=== PATIENT | female | born 1995 | race Caucasian/White ===

== ENCOUNTER 2016-12-24 08:31 | Emergency (ER) | payer OTHER ==
[~2016-12-24] VITALS: Ht 165.1 cm; Wt 72.6 kg
--- NOTE | ~2016-12-24 | US98 ---
[facility] A Service of [facility] & [facility] RADIOLOGY TEXT RESULTS PATIENT: BOOGIE SALAMANCA LOCATION: [facility] : [birth year] UNIT #: [id number] AGE: [address]: Lillie Duff APRN SEX: F ORDER DR: [id number] [facility] [address] [place], [place] [address] [id number] E MR#: [id number] Acc #: [id number] NAME: BOOGIE SALAMANCA : 1995 SEX: F STUDY DATE/TIME: 12/24/2016 9:32 UNIT: [id number] ROOM: STUDY DESCRIPTION: US Pelvic Non-OB Complete Attending Physician: Lillie Duff A.P.R.N. Ordering Physician: [facility] Primary Care Physician: Saud Jordan M.D. MEDICAL IMAGING REPORT This report is preliminary unless electronic signature is present EXAM Pelvic ultrasound, transabdominal and transvaginal technique, 12/24/2016 INDICATIONS Pelvic pain since last Saturday. Mirena device for 2 years. No irregular periods since the device was placed. Intermittent spotting for 2 years. TECHNIQUE Sonographic imaging of the pelvis was performed transabdominally and transvaginally for better evaluation of the adnexa and ovarian structures. COMPARISON None. Correlation is made with CT 02/11/2013. FINDINGS TRANSABDOMINAL IMAGING: The uterus measures 7.4 x 4.4 x 5.3 cm. It is better characterized transvaginally. The right ovary is only seen transvaginally. The left is seen transabdominally but better characterized transvaginally as well. TRANSVAGINAL IMAGING: An intrauterine device is present within the uterus and appears to be in satisfactory position. A small amount of nonspecific fluid associated with endometrial canal which is distended up to 7 mm. Uterus otherwise unremarkable. There is a small amount of free fluid in the pelvis, likely physiologic. The right ovary measures 3.7 x 2.3 x 3.8 cm and the left measures 2.9 x 2 x 3.3 cm. Both ovaries demonstrate good flow at the time of this study. There are multiple follicles associated with both ovaries that appear to be primarily situated peripherally in both ovaries. This is a nonspecific finding but can be associated with polycystic ovarian syndrome and should be correlated clinically. No adnexal mass. [facility] A Service of [facility] RADIOLOGY TEXT RESULTS PATIENT: BOOGIE SALAMANCA LOCATION: [facility] : 94 UNIT #: [id number] AGE: [address]: Lillie Duff [employer] SEX: F ORDER DR: IMPRESSION 1. Intrauterine device in satisfactory position. Uterus is otherwise unremarkable. 2. Probable physiologic volume of free fluid in the pelvis. 3. Both ovaries demonstrate good flow at the time of the study. 4. Both ovaries demonstrate multiple follicles that are situated peripherally. This is nonspecific but can be associated with polycystic ovarian syndrome. Dictated by... William Miller M.D. THIS IS AN ELECTRONICALLY VERIFIED REPORT William Miller M.D. at 12/25/2016 7:09 AM GENARO/fernanda TD: 12/24/2016 16:13 JOB #: [id number] MEDICAL IMAGING REPORT Page 1 of 1 COPY
[~2016-12-24 08:31] MED LIST: BACTRIM 400-801 TA1 PO; BENADRYL; FLEXERIL10 M1 PO; NAPROSYN500 MG PO
[2016-12-24 08:58] LABS: URINE SOURCE CLEAN CATCH
[2016-12-24 09:07] LABS: URINE APPEARANCE CLEAR; URINE BILIRUBIN NEG (NEG); URINE BLOOD NEG (NEG); URINE COLOR YELLOW; URINE GLUCOSE NEG (NEG); URINE KETONE NEG (NEG); URINE LEUKOCYTE ESTERASE 1+ (NEG); URINE NITRATE NEG (NEG); URINE PROTEIN NEG (NEG); URINE SPECIFIC GRAVITY 1.026 (1.003-1.035); URINE UROBILINOGEN 0.2 MG/DL (NEG)
[2016-12-24 09:10] LABS: CULTURE INDICATED? YES; URBCS1 AUWI 0-2 /[HPF] (0-2); URINE BACTERIA AUWI 1+ (NEGATIVE); URINE SQUAMOUS EPITHELIAL CELL FEW /[HPF]
[2016-12-24 09:23] LABS: BASOPHIL% 0.6 % (0-2.5); EOSINOPHIL# 0.1 X10e3 (0-0.7); EOSINOPHIL% 1.1 % (0.0-7.0); HEMATOCRIT 44.4 % (35.0-45.0); HEMOGLOBIN 14.7 gm/dL (12.0-16.0); LYMPHOCYTE# 1.7 X10e3 (1.0-3.5); MEAN CELL VOLUME 90.4 FL (83-96); MEAN CORPUSCULAR HEMOGLOBIN 29.9 PG (28-34); MEAN PLATELET VOLUME 8.9 FL (6.5-11.5); MONOCYTE# 0.5 X10e3 (0-1.0); MONOCYTE% 6.5 % (3.0-12.0); NEUTROPHIL# 4.7 X10e3 (1.5-7.1); NEUTROPHIL% 67.8 % (40-75); PLATELET COUNT 249 X10e3 (140-420); RED BLOOD COUNT 4.91 X10e (3.90-5.30); RED CELL DISTRIBUTION WIDTH 13.1 % (11.0-15.5)
[2016-12-24 09:25] LABS: DIFF IND NO
[2016-12-24 09:50] LABS: ALBUMIN SERUM 4.1 g/dL (3.5-5.0); BILIRUBIN,TOTAL 0.9 mg/dL (0.2-2.0); CREATININE SERUM 0.8 mg/dL (0.6-1.4); GLOM FILT RATE Estimated 104.7 mL/min (>60); POTASSIUM 3.8 mmol/L (3.5-5.1); PROTEIN TOTAL SERUM 7.3 g/dL (6.0-8.3)
== END 2016-12-24 11:47 | disposition home or self-care (01) ==
LOC: CED 08:31 → CFTX 08:31
PROVIDERS: Nurse Practitioner
DX: N83.02 Follicular cyst of left ovary (principal); N83.01 Follicular cyst of right ovary; N39.0 Urinary tract infection, site not specified
CPT/HCPCS: 36415; 76830; 76856; 80053; 81003; 83690; 85025; 87086; 99284